=== PATIENT | female | born 1990 ===

== ENCOUNTER 2020-06-18 15:37 | Emergency (ER) | payer SELFPAY ==
[2020-06-18 15:50] VITALS: BP 109/90
--- NOTE | 2020-06-18 15:50 | Emergency Department Report ---
Blank Doc - Documentation Documentation: 30-year-old female that presents with chest pain and syncopal episode. This initial assessment/diagnostic orders/clinical plan/treatment(s) is/are subject to change based on patient's health status, clinical progression and re- assessment by fellow clinical providers in the ED. Further treatment and workup at subsequent clinical providers discretion. Patient/guardians urged not to elope from the ED as their condition may be serious if not clinically assessed and managed. Initial orders include: 1- Patient sent to MAIN ED for further evaluation and treatment 2- cardiac workup
== END 2020-06-18 16:00 | disposition left against medical advice (07) ==
LOC: ED 15:37
DX: R55 Syncope and collapse (principal); Z53.21 Procedure and treatment not carried out due to patient leaving prior to being seen by health care provider